=== PATIENT | female | born 1960 | race Caucasian/White ===

== ENCOUNTER 2017-06-23 21:47 | Observation (INO) | payer OTHER ==
[2017-06-23] MEDS ORDERED: ASPIRIN 81 MG PO STA (21:58)
[2017-06-23 22:28] LABS: ALT 31 U/L (9-52); AST 22 U/L (14-36); Alkaline Phosphatase 71 U/L (38-126); Anion Gap 11 mmol/L; Blood Urea Nitrogen 10 mg/dL (7-17); Calcium 9.7 mg/dL (8.4-10.2); Carbon Dioxide 27 mmol/L (22-30); Chloride 104 mmol/L (98-107); Glucose 95 mg/dL (74-99); Magnesium 1.9 mg/dL (1.6-2.3); Non-African American GFR(MDRD) 56 (>60 ml/min/1.73 sqM); Potassium 3.9 mmol/L (3.5-5.1); Sodium 142 mmol/L (137-145); Total Bilirubin 0.5 mg/dL (0.2-1.3); Total Protein 7.6 g/dL (6.3-8.2)
[2017-06-23 22:30] LABS: Basophils % (A) 0 %; CH 29.3; CHCM 33.5; Eosinophils # (A) 0.1 k/uL (0-0.7); Eosinophils % (A) 1 %; HCT 43.6 % (34.0-46.0); HDW 2.41; HGB 14.3 gm/dL (11.4-16.0); Luc # (Auto) 0.11; Luc % (Auto) 2; Lymphocytes # (A) 1.7 k/uL (1.0-4.8); Lymphocytes % (A) 28 %; MCH 28.7 pg (25.0-35.0); MCHC 32.8 g/dL (31.0-37.0); MCV 87.6 fL (80.0-100.0); Mean Platelet Volume 7.5; Monocytes # (A) 0.4 k/uL (0-1.0); Monocytes % (A) 6 %; Neutrophils # (A) 3.8 k/uL (1.3-7.7); Neutrophils % (A) 63 %; RBC 4.98 m/uL (3.80-5.40); RDW 12.5 % (11.5-15.5); WBC (Perox) 6.09
[2017-06-23 22:32] LABS: INR 1.1 (<1.2); Partial Thromboplastin Time 27.4 sec (22.0-30.0); Prothrombin Time 10.7 sec (9.0-12.0)
[2017-06-23 22:42] LABS: Creatine Kinase 32 U/L (30-135)
--- NOTE | 2017-06-23 22:44 | XR ---
EXAMINATION TYPE: XR chest 2V DATE OF EXAM: 06/23/2017 COMPARISON: NONE HISTORY: Chest pain TECHNIQUE: Frontal and lateral views of the chest are obtained. FINDINGS: Heart and mediastinum are normal. Lungs are clear. Diaphragm is normal. Bony thorax is int act. IMPRESSION: Normal chest
[2017-06-23 22:55] LABS: Creatine Kinase MB 0.5 ng/mL (0.0-2.4); Troponin I <0.012 ng/mL (0.000-0.034)
--- NOTE | 2017-06-23 23:39 | ED ---
Chest Pain HPI - General Chief Complaint: Chest Pain Stated Complaint: Chest Pain Time Seen by Provider: 06/23/17 21:58 Source: patient Mode of arrival: ambulatory Limitations: no limitations - History of Present Illness Initial Comments: this patient is a 57-year-old woman who presents with 4-5 days of substernal chest pressure. The patient states that symptoms are mild in severity, constant , and she has not noted any worsening or relieving factors. She does state that she did have some occasional nausea and she has had a couple of days of a nonproductive cough associated. She states that the symptoms came on after she received a flu shot and she initially thought things were related to the shop when they did not improve after few days she was seen at a clinic, and it was recommended that she be seen in the emergency department. Patient denies any cardiac history. She did have a stress test but states that this was many years ago, that was normal. She states that she is a former smoker, having quit over 12 years ago. MD Complaint: chest pain Onset/Timin -: days(s) Onset: during rest Pain Location: substernal Pain Radiation: back Severity: mild Quality: other (pressure) Consistency: constant Improves With: nothing Worsens With: nothing Anginal Symptoms: nausea Other Symptoms: cough Treatments Prior to Arrival: none - Related Data Home Medications Medication Instructions Recorded Confirmed Aspirin 650 mg PO ONCE PRN 06/23/17 06/23/17 Ciprofloxacin HCl [Cipro] 500 mg PO Q12HR 06/23/17 06/23/17 Allergies Allergy/AdvReac Type Severity Reaction Status Date / Time No Known Allergies Allergy Verified 06/23/17 22:02 Review of Systems ROS Statement: Those systems with pertinent positive or pertinent negative responses have been documented in the HPI. ROS Other: All systems not noted in ROS Statement are negative. Constitutional: Denies: fever, chills Respiratory: Reports: as per HPI, cough. Denies: dyspnea, hemoptysis Cardiovascular: Reports: chest pain. Denies: palpitations, edema, syncope Gastrointestinal: Reports: nausea. Denies: abdominal pain, vomiting, melena, hematochezia Genitourinary: Denies: dysuria, hematuria Musculoskeletal: Denies: back pain Skin: Denies: rash Neurological: Denies: headache, weakness, numbness EKG Findings - EKG Results: EKG: interpreted by ERMD, WNL, sinus rhythm (rate 69 bpm), normal axis, normal QRS, normal ST/T, no acute changes - LA, Pacemaker, Normal: Normal tracing: normal tracing Past Medical History Additional Past Medical History / Comment(s): UTI History of Any Multi-Drug Resistant Organisms: None Reported Additional Past Surgical History / Comment(s): tubal ligation. Past Psychological History: No Psychological Hx Reported Smoking Status: Former smoker Past Alcohol Use History: Daily Past Drug Use History: None Reported General Exam Limitations: no limitations General appearance: alert, in no apparent distress Head exam: Present: atraumatic, normocephalic Eye exam: Present: normal appearance. Absent: scleral icterus, conjunctival injection ENT exam: Present: normal oropharynx Respiratory exam: Present: normal lung sounds bilaterally. Absent: respiratory distress, wheezes, rales, rhonchi, stridor, chest wall tenderness Cardiovascular Exam: Present: regular rate, normal rhythm, normal heart sounds. Absent: systolic murmur, diastolic murmur, rubs, gallop GI/Abdominal exam: Present: soft. Absent: distended, tenderness, guarding, rebound, organomegaly, mass, pulsatile mass, hernia Extremities exam: Present: normal inspection, normal capillary refill. Absent: pedal edema, calf tenderness Back exam: Present: normal inspection. Absent: CVA tenderness (R), CVA tenderness (L) Neurological exam: Present: alert Skin exam: Present: warm, dry, intact, normal color. Absent: rash Course Vital Signs 06/23/17 06/23/17 06/23/17 21:49 22:30 23:33 Temperature 97.9 F Pulse Rate 89 67 77 Respiratory 10 L 16 20 Rate Blood Pressure 169/81 147/84 134/72 O2 Sat by Pulse 100 100 99 Oximetry Disposition Clinical Impression: Chest pain Disposition: ADMITTED IP TO THIS HOSP Condition: Good Referrals: None,Stated [Primary Care Provider] - 1-2 days
[2017-06-23] MEDS ORDERED: RX INFO: IV CONTRAST WAS GIVEN 1 EACH MISC MISCELLANE PRN (23:40)
--- NOTE | 2017-06-24 00:13 | CT ---
EXAMINATION TYPE: CT chest angio for PE DATE OF EXAM: 06/24/2017 COMPARISON: NONE HISTORY: chest pain CT DLP: 151.20 mGycm Automated exposure control for dose reduction was used. CONTRAST: CT Chest for pulmonary embolism performed with with IV Contrast, patient injected with 70 mL of Visip aque 320. There are 3-D post processed images. FINDINGS: There is no mediastinal adenopathy. Thoracic aorta appears normal. Heart size is normal. There is no pericardial effusion. I see no filling defects in the pulmonary arteries. There is mild subsegmental atelectasis at the posterior lung bases. There is no evidence of a pulmona ry mass. There is no pleural effusion. Bony thorax appears intact. There is a 3 cm low-density mass in the posterior right lobe of the liver. There is a 12 mm rounded h ypodensity in the anterior left lobe of the liver that could be a cyst. IMPRESSION: No evidence of pulmonary embolism. Possible solid liver mass. Ultrasound or CT scan would be helpful for further evaluation if clinically indicated.
[2017-06-24] MEDS ORDERED: NITROGLYCERIN SL TABS 0.4 MG TAB SUBLINGUAL PRN (01:01)
[2017-06-24 04:25] LABS: Creatine Kinase 30 U/L (30-135)
[2017-06-24 04:39] LABS: Creatine Kinase MB 0.4 ng/mL (0.0-2.4); Troponin I <0.012 ng/mL (0.000-0.034)
--- NOTE | 2017-06-24 09:27 | US ---
EXAMINATION TYPE: US liver DATE OF EXAM: 06/24/2017 COMPARISON: CT CLINICAL HISTORY: liver mass. Liver lesions seen in CT EXAM MEASUREMENTS: Liver Length: 14.7 cm Gallbladder Wall: 0.1 cm CBD: 0.4 cm Right Kidney: 9.9 x 4.3 x 5.0 cm Pancreas: wnl, tail obscured by overlying midline bowel gas Liver: 2.4 x 1.2 x 1.7cm cystic lesion left lobe, 2.9 x 3.3 x 2.2cm heterogeneous hyperechoic lesion posterior right lobe, 1.2 x 1.3 x 1.2cm hyperechoic lesion superior right lobe Gallbladder: wnl Evidence for sonographic Kennedy's sign: no CBD: wnl Right Kidney: 3.7 x 3.2 x 3.4cm exophytic cyst superior pole, small 0.9cm cortical cyst, cortical th inning IMPRESSION: 1. 2 hyperechoic masses within the liver of uncertain etiology. Hemangioma could be considered. The C TA chest is nondiagnostic for the liver lesions. Additional workup with contrast MRI is recommended. Additional workup could include contrast CT abdomen. 2. Bilobed cystic lesion within the liver has a benign appearance.
--- NOTE | 2017-06-24 09:41 | P.CRDCN ---
History of Present Illness Consult date: 06/24/17 Chief complaint: Chest pain History of present illness: This is a pleasant 57-year-old female patient with a past medical history significant for dyslipidemia and significant family history of coronary artery disease with her mother presented to the hospital complaining of chest discomfort. The symptoms started a few weeks ago where she describes intermittent episodes of chest pressure with some radiation to the left arm. No shortness of breath. No dizziness or lightheadedness and no syncope. She mentioned that to her primary care physician who recommended the patient to seek medical attention if she continues to have a chest discomfort. The patient continues to have chest discomfort over the last several weeks. She's not aware of any prior cardiac history like coronary artery disease or congestive heart failure or cardiac arrhythmia and she never seen any porcelain enamel repairer in the past. Never had any stress test or heart catheterization before. The cardiac workup this time showed normal EKG and normal cardiac enzymes. Chest x-ray came in to be unremarkable. She underwent a CTA of the chest which showed no PE but it revealed a liver mass which was confirmed by ultrasound of the liver. I am concerned about severe underlying coronary artery disease in view of her symptoms as well as family history. I recommended proceeding with a stress test. Unfortunately the patient 8 this morning so we'll plan to schedule her to have the stress test tomorrow morning. Past Medical History Additional Past Medical History / Comment(s): UTI History of Any Multi-Drug Resistant Organisms: None Reported Additional Past Surgical History / Comment(s): tubal ligation. Past Psychological History: No Psychological Hx Reported Smoking Status: Former smoker Past Alcohol Use History: Daily Past Drug Use History: None Reported Medications and Allergies Home Medications Medication Instructions Recorded Confirmed Type Aspirin 650 mg PO ONCE PRN 06/23/17 06/23/17 History Ciprofloxacin HCl [Cipro] 500 mg PO Q12HR 06/23/17 06/23/17 History Allergies Allergy/AdvReac Type Severity Reaction Status Date / Time No Known Allergies Allergy Verified 06/23/17 22:02 Physical Exam Vitals: Vital Signs Temp Pulse Resp BP Pulse Ox 06/24/17 07:21 80 18 129/81 97 06/24/17 06:24 73 20 139/63 94 L 06/24/17 05:23 72 18 160/83 98 06/24/17 05:18 97.6 F 78 16 133/81 99 06/24/17 04:33 64 18 124/89 100 06/24/17 02:35 63 20 149/67 97 06/24/17 01:33 58 L 20 150/68 100 06/23/17 23:33 77 20 134/72 99 06/23/17 22:30 67 16 147/84 100 06/23/17 21:49 97.9 F 89 10 L 169/81 100 Intake and Output 06/23/17 06/24/17 06/24/17 22:59 06:59 14:59 Other: Weight 56.699 kg - Constitutional General appearance: no acute distress - Respiratory Respiratory: bilateral: CTA - Cardiovascular Rhythm: regular Heart sounds: normal: S1, S2 Results 06/23/17 22:05 06/23/17 22:05 Cardiac Enzymes 06/23/17 06/23/17 06/24/17 Range/Units 22:05 22:05 03:34 AST 22 (14-36) U/L CK-MB (CK-2) 0.5 0.4 (0.0-2.4) ng/mL Troponin I <0.012 <0.012 (0.000-0.034) ng/mL Coagulation 06/23/17 Range/Units 22:05 PT 10.7 (9.0-12.0) sec APTT 27.4 (22.0-30.0) sec CBC 06/23/17 Range/Units 22:05 WBC 6.0 (3.8-10.6) k/uL RBC 4.98 (3.80-5.40) m/uL Hgb 14.3 (11.4-16.0) gm/dL Hct 43.6 (34.0-46.0) % Plt Count 264 (150-450) k/uL Comprehensive Metabolic Panel 06/23/17 Range/Units 22:05 Sodium 142 (137-145) mmol/L Potassium 3.9 (3.5-5.1) mmol/L Chloride 104 (98-107) mmol/L Carbon Dioxide 27 (22-30) mmol/L BUN 10 (7-17) mg/dL Creatinine 1.02 (0.52-1.04) mg/dL Glucose 95 (74-99) mg/dL Calcium 9.7 (8.4-10.2) mg/dL AST 22 (14-36) U/L ALT 31 (9-52) U/L Alkaline Phosphatase 71 (38-126) U/L Total Protein 7.6 (6.3-8.2) g/dL Albumin 4.7 (3.5-5.0) g/dL Current Medications Generic Name Dose Route Start Last Admin Trade Name Freq PRN Reason Stop Dose Admin Aspirin 325 mg 06/25/17 09:00 Aspirin PO DAILY UMESH Enoxaparin Sodium 40 mg 06/24/17 09:00 Lovenox SQ DAILY UMESH Miscellaneous Information 1 each 06/23/17 23:40 Rx Info: Iv Contrast Was Given MISCELLANE 06/25/17 23:40 DAILY PRN Per Protocol Nitroglycerin 0.4 mg 06/24/17 01:01 Nitrostat SUBLINGUAL Q5M PRN Chest Pain Intake and Output 06/23/17 06/24/17 06/24/17 22:59 06:59 14:59 Other: Weight 56.699 kg 06/23/17 22:05 06/23/17 22:05 Assessment and Plan Assessment: This is a pleasant 57-year-old female patient with a past medical history significant for dyslipidemia and significant family history of coronary artery disease who presented to the emergency room with intermittent episodes of chest discomfort. The cardiac workup is unremarkable but she was found to have a liver mass. I recommended proceeding with a stress test to rule out any severe underlying CAD. Also I will obtain an echocardiogram was Doppler.
[2017-06-24] MEDS: ENOXAPARIN 40 MG/0.4 ML SYRINGE SQ SCH (09:59)
[2017-06-24 10:32] LABS: Creatine Kinase 27 U/L (30-135)
[2017-06-24 10:45] LABS: Creatine Kinase MB 0.3 ng/mL (0.0-2.4); Troponin I <0.012 ng/mL (0.000-0.034)
[2017-06-24] MEDS ORDERED: AMINOPHYLLINE 500 MG/20 ML VIAL IV PRN (15:50)
[2017-06-24] MEDS ORDERED: ACETAMINOPHEN TAB 325 MG TAB PO PRN (17:48)
[2017-06-25 03:12] LABS: Cholesterol 217 mg/dL (<200); HDL Cholesterol 58 mg/dL (40-60)
[2017-06-25] MEDS ORDERED: REGADENOSON 0.4 MG/5 ML SYRINGE IV ONE (08:10)
[2017-06-25] MEDS ORDERED: ASPIRIN 325 MG TAB PO SCH (09:00)
--- NOTE | 2017-06-25 10:37 | NM ---
EXAMINATION TYPE: NM stress lexiscan cardiolite DATE OF EXAM: 06/25/2017 COMPARISON: NONE HISTORY: Chest pain, hyperlipidemia, arm numbness, and family history of coronary artery disease. TECHNIQUE: After the intravenous administration of 10.13 mCi Tc 99m Sestamibi - Cardiolite resting S PECT images acquired 45 minutes post injection. The patient received 0.4mg Lexiscan, 27.8 mCi Tc 99m Sestamibi - Stress images obtained [address] injection FINDINGS: Review of stress and rest SPECT images demonstrates no distinct perfusion abnormality. Gated analysi s shows normal wall motion with an estimated left ventricular ejection fraction of 67 %. TID is within normal limits at 1.16. IMPRESSION: 1. No scintigraphic evidence for reversible ischemia. 2. Estimated left ventricular ejection fraction of 67%.
--- NOTE | 2017-06-25 11:06 | ECHOF ---
Referral Reason:chest pain MEASUREMENTS -------- HEIGHT: 165.1 cm WEIGHT: 56.7 kg BP: 129/66 RVIDd: 2.4 cm (< 3.3) IVSd: 1.3 cm (0.6 - 1.1) LVIDd: 3.5 cm (3.9 - 5.3) LVPWd: 1.3 cm (0.6 - 1.1) IVSs: 1.4 cm LVIDs: 3.0 cm LVPWs: 1.3 cm LAESV Index (A-L): 16.16 ml/m Ao Diam: 3.0 cm (2.0 - 3.7) AV Cusp: 1.7 cm (1.5 - 2.6) LA Diam: 2.9 cm (2.7 - 3.8) MV EXCURSION: 16.269 mm (> 18.000) MV EF SLOPE: 104 mm/s (70 - 150) EPSS: 0.7 cm MV E Best: 0.68 m/s MV DecT: 234 ms MV A Best: 0.79 m/s MV E/A Ratio: 0.86 RAP: 5.00 mmHg RVSP: 14.84 mmHg FINDINGS -------- Sinus rhythm. This was a technically adequate study. The left ventricular size is normal. There is borderline concentric left ventricular hypertrophy. Overall left ventricular systolic function is normal with, an EF between 55 - 60 %. The right ventricle is normal in size and function. Normal LA size by volume 22+/-6 ml/m2. The right atrium is normal in size. The aortic valve is trileaflet, and appears structurally normal. No aortic stenosis or regurgitation. The mitral valve leaflets are mildly thickened. There is trace mitral regurgitation. Trace tricuspid regurgitation present. Right ventricular systolic pressure is normal at < 35 mmHg. There is no evidence of pulmonary hypertension. The pulmonic valve is normal. The aortic root size is normal. Normal inferior vena cava with normal inspiratory collapse consistent with estimated right atrial pre ssure of 5 mmHg. The pericardium is normal. There is no pericardial effusion. CONCLUSIONS -------- 1. Sinus rhythm. 2. This was a technically adequate study. 3. The left ventricular size is normal. 4. There is borderline concentric left ventricular hypertrophy. 5. Overall left ventricular systolic function is normal with, an EF between 55 - 60 %. 6. Normal LA size by volume 22+/-6 ml/m2. 7. The aortic valve is trileaflet, and appears structurally normal. No aortic stenosis or regurgitati on. 8. The mitral valve leaflets are mildly thickened. 9. There is trace mitral regurgitation. 10. Trace tricuspid regurgitation present. 11. Right ventricular systolic pressure is normal at < 35 mmHg. 12. There is no evidence of pulmonary hypertension. 13. The aortic root size is normal. 14. There is no pericardial effusion. COMMERCIAL REAL ESTATE UNDERWRITER: Cruz Lambert RDCS
[2017-06-25] MEDS: ENOXAPARIN 40 MG/0.4 ML SYRINGE SQ SCH (11:31)
--- NOTE | 2017-06-25 12:43 | EST ---
EXERCISE STRESS DATE OF SERVICE: 06/25/2017 AGE: 57 SEX: F HT: 60" WT: 125 PROTOCOL: Lexiscan Cardiolite Stress Test. HEART RATE REST: 69 BLOOD PRESSURE REST: 132/85 MAXIMUM HEART RATE ACHIEVED: 124 MAXIMUM BLOOD PRESSURE: 143/68 85% MPHR: 139 100% MPHR: 163 INDICATIONS: Chest pain. CLINICAL INFORMATION: STRESS DATA: Pretesting physical examination showed a heart rate of 69, pressure is 132/85 mmHg. Baseline EKG showed sinus rhythm. The patient was given 0.4 mg of Lexiscan over 15 seconds per protocol with max heart rate was 124 beats per minute and maximum pressure was 143/68 mmHg. Clinically, the patient did not have any symptoms of chest pain or discomfort and the EKG did not show any significant ST or T-wave abnormalities consistent with ischemia. CONCLUSION: 1. Nondiagnostic electrocardiogram stress test in response to Lexiscan. 2. Please follow up on the Cardiolite portion on a separate report from the Radiology Department. MMODL / IJN: [id number] /
--- NOTE | 2017-06-25 14:07 | HP ---
HISTORY AND PHYSICAL CHIEF COMPLAINT: A 57-year-old white female, with atypical chest pain, radiating down the left arm. HISTORY OF PRESENT ILLNESS: A 57-year-old who developed 4 to 5 days of substernal chest pressure, mild severity, worsening, nonproductive cough associated with it. Seen in the emergency room. Denied any cardiac history. She said a stress test many years ago was normal. She is a former smoker, quit over 12 years ago. CAT scan of the chest was done which showed no PE due to elevated D-dimer in the ER. HOME MEDICINES: 1. Aspirin. 2. Cipro for UTI. REVIEW OF SYSTEM: A 14-point review of systems negative except for mentioned in the HPI and possible urinary tract infection. EKG shows sinus rhythm, no ischemia. Former smoker. Daily alcohol. Well-nourished well-developed white female, in no acute distress. Normocephalic, atraumatic. HEENT within normal limits. RESPIRATORY: Normal lung sounds bilaterally. CARDIOVASCULAR: Regular rate and rhythm. GI: Soft, distended, tender, no rebound or guarding. EXTREMITIES: No cyanosis, clubbing, edema. Normal dorsalis pedis, posterior tibial and radial pulse. Back is normal to inspection. No CVA tenderness. NEUROLOGIC: Cranial nerves are intact. SKIN: Warm, dry and intact. VITAL SIGNS: Temp 97.9, pulse rate is 67 to 89, respiratory is 16 to 20, blood pressure 130 to 160/70s to 80s. CAT scan of the chest did show some questionable mass on the liver. ASSESSMENT: 1. At this time is atypical chest pain. Rule out myocardial infarction. 2. Possible liver mass on ultrasound of the liver. 3. Possible stress test will be needed to rule out myocardial infarction, see further orders. MMODL / IJN: [id number] /
--- NOTE | 2017-06-25 14:30 | MR ---
MRI liver with and without contrast HISTORY: Liver masses Multiplanar multisequence and postcontrast imaging through the liver following 5 cc Gadavist IV. Correlation to CT chest 06/23/2017, ultrasound liver 06/24/2017 The mass in the posterior right lobe of the liver shows nodular and centrifugal enhancement, increase d signal on T2-weighted sequences and measures approximately 3 cm in dimension. The left lobe lesion shows cystic signal and T2-weighted sequences, low signal on T1-weighted images and measures approxim ately 2 cm in greatest dimension. Smaller lesion towards the dome of the diaphragm measures only 8 to 9 mm and shows cystic signal precontrast, nodular enhancement following contrast administration. Multiple cysts are associated with the kidneys, the largest in the right measures approximately 3.3 c m at the midpole, the largest on the left at the mid pole measures 3.6 cm. There is no evident adrenal mass. No retroperitoneal adenopathy. The aorta enhances unremarkably. The spleen and pancreas are normal. Gallbladder is unremarkable. Lung bases show no evident pleural effu jillian. No evident ascites. IMPRESSION: 2 hemangiomas are present within the right lobe. Hepatic cyst within the left lobe.
[2017-06-25 15:36] VITALS: BP 119/64; PULSE 65; RESP 18; TEMP 98.4
--- NOTE | 2017-06-25 17:58 | DS ---
DISCHARGE SUMMARY DISCHARGE DIAGNOSES: 1. Atypical chest pain. 2. Liver hemangioma. 3. Liver cyst. CONDITION: Stable. PROGNOSIS: Guarded. MEDICATIONS: Macrobid 100 mg 1 b.i.d. for a week. HOSPITAL COURSE: This is a 57-year-old white female came with atypical chest pain. Cardiology cleared with negative Lexiscan stress test. CT scan of the lungs was negative for any cardiac process or pulmonary process as she had elevated D-dimer. Liver cyst was treated with an ultrasound and MRI which showed benign hemangioma and a benign cyst. Patient will then be discharged home to follow up as an outpatient after taking Macrobid for a week 100 mg b.i.d. MMODL / IJN: [id number] /
[2017-06-26] MEDS ORDERED: REGADENOSON 0.4 MG/5 ML SYRINGE IV ONE (08:00)
== END 2017-06-25 16:30 | disposition home or self-care (01) ==
LOC: EC 21:47 → 3OBS 06-24 01:04
PROVIDERS: ADMIT Family Medicine; ATTEND Family Medicine
DX: R07.89 Other chest pain (principal); D18.03 Hemangioma of intra-abdominal structures; K76.89 Other specified diseases of liver; N39.0 Urinary tract infection, site not specified; E78.5 Hyperlipidemia, unspecified; Z87.891 Personal history of nicotine dependence; Z95.0 Presence of cardiac pacemaker; Z82.49 Family history of ischemic heart disease and other diseases of the circulatory system; Z79.2 Long term (current) use of antibiotics
CPT/HCPCS: 96372 ×2; 99285; 36415; 93005; 93017; 93306; 85379; 80061; 80053; 82550 ×2; 82553 ×2; 83735; 84484 ×2; 85025; 85610; 85730; 71020; 76705; 71275; 74183; 78452; G0378 ×2; A9500; Q9967; J1650 ×2; J2785; A9581

== ENCOUNTER → 2018-05-07 | Outpatient (CLI) | payer OTHER ==
--- NOTE | 2018-05-09 12:36 | MM ---
Reason for exam: screening (asymptomatic). Last mammogram was performed 2 years and 5 months ago. History: Patient is postmenopausal. Family history of breast cancer in maternal grandmother at age 60. Physical Findings: A clinical breast exam by your physician is recommended on an annual basis and results should be correlated with mammographic findings. MG 3D Screening Mammo W/Cad Bilateral CC and MLO view(s) were taken. Prior study comparison: December 10, 2015, mammogram, performed at [facility]. February 12, 2014, mammogram, performed at [facility]. The breast tissue is heterogeneously dense. This may lower the sensitivity of mammography. There is no discrete abnormality. No significant changes when compared with prior studies. ASSESSMENT: Negative, BI-RAD 1 RECOMMENDATION: Routine screening mammogram of both breasts in 1 year.
== END | disposition home or self-care (01) ==
LOC: RADMAMWWP 08:19
PROVIDERS: ATTEND Obstetrics & Gynecology Obstetrics
DX: Z12.31 Encounter for screening mammogram for malignant neoplasm of breast (principal)
CPT/HCPCS: 77063; 77067

== ENCOUNTER → 2019-11-04 | Outpatient (CLI) | payer OTHER ==
--- NOTE | 2019-11-07 08:25 | MM ---
Reason for exam: screening (asymptomatic). Last mammogram was performed 1 year and 6 months ago. History: Patient is postmenopausal. Family history of breast cancer in maternal grandmother at age 60. Physical Findings: A clinical breast exam by your physician is recommended on an annual basis and results should be correlated with mammographic findings. MG 3D Screening Mammo W/Cad Bilateral CC and MLO view(s) were taken. XCCM view(s) were taken of the left breast. Prior study comparison: May 07, 2018, bilateral MG 3d screening mammo w/cad. December 10, 2015, mammogram, performed at [facility]. The breast tissue is heterogeneously dense. This may lower the sensitivity of mammography. No significant changes when compared with prior studies. ASSESSMENT: Negative, BI-RAD 1 RECOMMENDATION: Routine screening mammogram of both breasts in 1 year.
== END | disposition home or self-care (01) ==
LOC: RADMAMWWP 08:32
PROVIDERS: ATTEND Obstetrics & Gynecology Obstetrics
DX: Z08 Encounter for follow-up examination after completed treatment for malignant neoplasm (principal); Z80.3 Family history of malignant neoplasm of breast
CPT/HCPCS: 77063; 77067

== ENCOUNTER → 2020-12-13 | Outpatient (CLI) | payer OTHER ==
--- NOTE | 2020-12-17 07:38 | MM ---
Reason for exam: screening (asymptomatic). Last mammogram was performed 1 year and 1 month ago. History: Patient is postmenopausal. Family history of breast cancer in maternal grandmother at age 60. Physical Findings: A clinical breast exam by your physician is recommended on an annual basis and results should be correlated with mammographic findings. MG 3D Screening Mammo W/Cad Bilateral CC and MLO view(s) were taken. Prior study comparison: November 04, 2019, bilateral MG 3d screening mammo w/cad. May 07, 2018, bilateral MG 3d screening mammo w/cad. The breast tissue is heterogeneously dense. This may lower the sensitivity of mammography. No significant changes when compared with prior studies. ASSESSMENT: Negative, BI-RAD 1 RECOMMENDATION: Routine screening mammogram of both breasts in 1 year.
== END | disposition home or self-care (01) ==
LOC: RADMAMWWP 11:20
PROVIDERS: ATTEND Obstetrics & Gynecology Obstetrics
DX: Z12.31 Encounter for screening mammogram for malignant neoplasm of breast (principal); Z78.0 Asymptomatic menopausal state; Z80.3 Family history of malignant neoplasm of breast
CPT/HCPCS: 77063; 77067

== ENCOUNTER → 2022-12-22 | Outpatient (CLI) | payer BC ==
--- NOTE | 2022-12-23 07:37 | MM ---
Reason for Exam: Screening (asymptomatic). Last mammogram was performed 2 year(s) and 0 month(s) ago. Patient History: Menarche at age 15. First Full-Term at age 24. Postmenopausal. Patient has history of breast feeding. Maternal grandmother had breast cancer, age 60. Risk Values: Rosamaria 5 year model risk: 1.2%. NCI Lifetime model risk: 5.7%. Prior Study Comparison: 12/10/2015 Screening Mammogram, [facility]. 05/07/2018 Bilateral Screening Mammogram, [facility]. 11/04/2019 Bilateral Screening Mammogram, [facility]. 12/13/2020 Bilateral Screening Mammogram, [facility]. Tissue Density: There are scattered fibroglandular densities. Findings: Analyzed By CAD. There is no suspicious group of microcalcifications or new suspicious mass in either breast. Overall Assessment: Negative, BI-RAD 1 Management: Screening Mammogram of both breasts in 1 year. A clinical breast exam by your physician is recommended on an annual basis and results should be correlated with mammographic findings. [facility] will attempt to contact patient to return for supplemental views and ultrasound if indicated. Electronically signed and approved by: Asif Quintana DO
== END | disposition home or self-care (01) ==
LOC: RADMAMWWP 08:15
PROVIDERS: ATTEND Obstetrics & Gynecology Obstetrics
DX: Z12.31 Encounter for screening mammogram for malignant neoplasm of breast (principal); Z78.0 Asymptomatic menopausal state; Z80.3 Family history of malignant neoplasm of breast
CPT/HCPCS: 77063; 77067